=== PATIENT | female | born 1995 | race Caucasian/White ===

== ENCOUNTER → 2017-06-23 | Outpatient (CLI) | payer OTHER ==
[2017-06-23 08:30] LABS: HEMATOCRIT 45.9 % (34.6-47.8); HEMOGLOBIN 15.9 g/dL (11.7-16.4); WHITE BLOOD COUNT 8.1 x10^3/uL (3.4-10)
[2017-06-23 08:39] LABS: BLOOD UREA NITROGEN 11 mg/dL (7-18)
[2017-06-23 08:48] LABS: ASPARTATE AMINO TRANSFERASE 17 U/L (15-37)
[2017-06-28 17:06] LABS: HELICOBACTER PYLORI IGG 0.7 U/mL (0.0-0.8); HELICOBACTER PYLORI IGM <9.0 units (0.0-8.9)
== END | disposition home or self-care (01) ==
LOC: LAB 08:09
PROVIDERS: ATTEND Nurse Practitioner Family
DX: N91.2 Amenorrhea, unspecified (principal); R63.5 Abnormal weight gain; E66.9 Obesity, unspecified; K59.00 Constipation, unspecified
CPT/HCPCS: 36415; 80053; 80061; 82306; 83001; 83002; 83036; 83525; 84439; 84443; 84481; 85025; 86677

== ENCOUNTER → 2017-07-21 | Outpatient (CLI) | payer OTHER | END | disposition home or self-care (01) | LOC: CFH 16:07 | PROVIDERS: ATTEND Nurse Practitioner Family | DX: N83.201 Unspecified ovarian cyst, right side (principal) | CPT/HCPCS: 76830 ==